=== PATIENT | female | born 1985 | race Two or more races ===

== ENCOUNTER 2022-07-01 14:25 | Inpatient (IN) | payer MEDICAID, OTHER ==
[~2022-07-01] VITALS: Ht 160 cm; Wt 92.6 kg
[2022-07-01 15:51] LABS: Basophils # (auto) 0 10 ^3/uL (0-0.2); Basophils % (auto) 0.1 % (0.0-2.0); Eosinophils # (auto) 0 10 ^3/uL (0-0.8); Hematocrit 47.2 % (36.0-46.0); Hemoglobin 15.7 g/dL (12.2-16.2); Lymphocytes # (auto) 1.5 10 ^3/uL (0.4-5.4); Lymphocytes % (auto) 10.6 % (10.0-50.0); Mean Corpuscular Hemoglobin 28.7 pg (28.0-32.0); Mean Corpuscular Hgb Conc. 33.2 g/dL (32.0-36.0); Mean Corpuscular Volume 86.5 fL (80.0-100.0); Monocytes # (auto) 0.3 10 ^3/uL (0-1.3); Monocytes % (auto) 2.3 % (0.0-12.0); Red Blood Cells 5.46 10^6/uL (4.0-5.20); Red Cell Distribution Width 13.1 % (11.8-14.3); White Blood Cell 13.8 10^3/uL (4.4-10.8)
[2022-07-01 16:08] LABS: Calcium 11.1 mg/dL (8.5-10.1); Potassium 4.2 mmol/L (3.5-5.1)
[2022-07-01 16:13] LABS: Albumin 4.1 g/dL (3.4-5.0); BUN/Creatinine Ratio 14.3; Bilirubin, Total 0.7 mg/dL (0.2-1.0); Total Protein 7.7 g/dL (6.4-8.2)
[2022-07-01 16:16] LABS: Lactic Acid w/Reflex 2.7 mmol/L (0.4-2.0)
[2022-07-01] MEDS ORDERED: SODIUM CHLORIDE 0.9% 1,000 ML IV ONE (17:30)
[2022-07-01] MEDS ORDERED: fentaNYL CITRATE 100 MCG/2 ML VL IV ONE (18:45)
[2022-07-01] MEDS ORDERED: ONDANSETRON HCL 4 MG/2 ML VIAL IV ONE (18:45)
[2022-07-01] MEDS ORDERED: TAMSULOSIN HYDROCHLORIDE 0.4 MG CAP PO ONE (18:45)
[2022-07-01] MEDS ORDERED: cefTRIAXone 1GM/50ML D5W 50 ML IV ONE (19:00)
[2022-07-01 19:36] LABS: Urine Bacteria FEW /hpf (None Seen); Urine Blood 1+ /uL (Negative); Urine Budding Yeast FEW /hpf (None Seen); Urine Mucus FEW (None Seen); Urine Specific Gravity 1.038 (1.001-1.035); Urine WBC 114 /hpf (0 - 5)
[2022-07-01] MEDS ORDERED: HYDROcodone-ACET 5/325MG TAB PO PRN (21:00)
[2022-07-01] MEDS ORDERED: ACETAMINOPHEN 325 MG TAB PO PRN (21:00)
[2022-07-01] MEDS ORDERED: ONDANSETRON HCL 4 MG/2 ML VIAL IV PRN (21:00)
[2022-07-01] MEDS ORDERED: TEMAZEPAM 15 MG CAP PO PRN (21:00)
[2022-07-01] MEDS ORDERED: DEXTROSE (50%) 50ML SYRG IV PRN (23:30)
[2022-07-02] MEDS: MORPHINE SULFATE INJ 2 MG/ml SYRG IV PRN ×3 (01:31→23:36)
[2022-07-02 05:02] LABS: Basophils # (auto) 0 10 ^3/uL (0-0.2); Basophils % (auto) 0.3 % (0.0-2.0); Eosinophils # (auto) 0 10 ^3/uL (0-0.8); Hematocrit 42.9 % (36.0-46.0); Hemoglobin 14.1 g/dL (12.2-16.2); Lymphocytes # (auto) 2.2 10 ^3/uL (0.4-5.4); Lymphocytes % (auto) 16.7 % (10.0-50.0); Mean Corpuscular Hemoglobin 28.5 pg (28.0-32.0); Mean Corpuscular Hgb Conc. 32.8 g/dL (32.0-36.0); Mean Corpuscular Volume 86.9 fL (80.0-100.0); Monocytes # (auto) 1.1 10 ^3/uL (0-1.3); Monocytes % (auto) 8.3 % (0.0-12.0); Neutrophils # (auto) 9.9 10 ^3/uL (1.6-8.6); Neutrophils % (auto) 74.7 % (37.0-80.0); Red Blood Cells 4.94 10^6/uL (4.0-5.20); Red Cell Distribution Width 13.5 % (11.8-14.3); White Blood Cell 13.3 10^3/uL (4.4-10.8)
[2022-07-02 05:14] LABS: Albumin 3.4 g/dL (3.4-5.0); BUN/Creatinine Ratio 21.2; Calcium 10.1 mg/dL (8.5-10.1)
[2022-07-02 05:20] LABS: Bilirubin, Total 0.7 mg/dL (0.2-1.0); Total Protein 6.7 g/dL (6.4-8.2)
[2022-07-02] MEDS: ACCU-CHEK COMFORT CURVE STRIP VI SCH ×4 (06:43→22:18)
[2022-07-02] MEDS: InsuLIN REG 1unit/0.01ml Soln (100units/ml) SC SCH ×4 (07:25→22:18)
[2022-07-02] MEDS: cefTRIAXone 1GM/50ML D5W 50 ML IV SCH (09:29)
[2022-07-02] MEDS: PANTOPRAZOLE 40 MG TAB PO SCH (10:51)
[2022-07-02] MEDS ORDERED: MANNITOL FTV 25% 12.5 GM/50 ML 50 ML IV ONE (11:00)
[2022-07-02 13:56] VITALS: BP 99/56
[2022-07-02 16:00] VITALS: BP 128/80
[2022-07-02 22:00] VITALS: BP 118/66
[2022-07-03 05:00] VITALS: BP 120/73
[2022-07-03] MEDS: ACCU-CHEK COMFORT CURVE STRIP VI SCH ×4 (06:29→21:39)
[2022-07-03] MEDS: InsuLIN REG 1unit/0.01ml Soln (100units/ml) SC SCH ×4 (06:29→21:43)
[2022-07-03] MEDS: MORPHINE SULFATE INJ 2 MG/ml SYRG IV PRN (06:40)
[2022-07-03 09:00] VITALS: BP 117/77
[2022-07-03] MEDS: PANTOPRAZOLE 40 MG TAB PO SCH (09:27)
[2022-07-03] MEDS: cefTRIAXone 1GM/50ML D5W 50 ML IV SCH (09:27)
[2022-07-03 13:02] VITALS: BP_SYST 101; BP_SYST 117; BP_DIAS 59; BP_DIAS 67
[2022-07-03 17:00] VITALS: BP 101/60
[2022-07-03] MEDS ORDERED: POLYETHYLENE GLYCOL 17 GM PWDR PO PRN (18:45)
[2022-07-03] MEDS: DOCUSATE SOD 100 MG CAP PO SCH (21:38)
[2022-07-03 22:00] VITALS: BP 116/77
[2022-07-03] MEDS ORDERED: SENNA 8.6 MG TAB PO SCH (22:00)
[2022-07-03] MEDS ORDERED: INSULIN LANTUS (GLARGINE) 1 /0.01ml (100units/ml) SC SCH (22:00)
[2022-07-04 05:00] VITALS: BP 125/85
[2022-07-04] MEDS: ACCU-CHEK COMFORT CURVE STRIP VI SCH ×3 (06:26→17:00)
[2022-07-04] MEDS: InsuLIN REG 1unit/0.01ml Soln (100units/ml) SC SCH ×3 (06:27→18:16)
[2022-07-04] MEDS ORDERED: GLIMEPIRIDE 2 MG TAB PO SCH (07:00)
[2022-07-04] MEDS: cefTRIAXone 1GM/50ML D5W 50 ML IV SCH ×2 (08:57→10:35)
[2022-07-04 08:58] VITALS: BP 112/73
[2022-07-04] MEDS: PANTOPRAZOLE 40 MG TAB PO SCH (09:00)
[2022-07-04] MEDS: DOCUSATE SOD 100 MG CAP PO SCH (09:00)
[2022-07-04 13:00] VITALS: BP 110/74
[2022-07-04 14:10] LABS: Albumin 3.2 g/dL (3.4-5.0); BUN/Creatinine Ratio 13.2; Potassium 4.1 mmol/L (3.5-5.1)
[2022-07-04 14:12] LABS: Bilirubin, Total 0.4 mg/dL (0.2-1.0); Total Protein 7.6 g/dL (6.4-8.2)
[2022-07-04] MEDS ORDERED: LANC-347 XX (15:24)
[2022-07-04] MEDS ORDERED: INSU-567 XX (15:24)
[2022-07-04] MEDS ORDERED: GLIM-6 PO (15:24)
[2022-07-04] MEDS ORDERED: BLOO1KIT60 XX (15:24)
[2022-07-04] MEDS ORDERED: INSLANTI SC (15:24)
[2022-07-04] MEDS ORDERED: HYDR-4902 PO (15:26)
[2022-07-04] MEDS ORDERED: CEPH-510 PO (15:26)
[2022-07-04 16:55] VITALS: BP 119/80
== END 2022-07-04 18:20 | disposition home or self-care (01) | DRG 463 ==
LOC: ER 14:25 → EDBD 14:25 → OVERFLOW 21:00 → EAST 07-02 13:56
PROVIDERS: ADMIT Nurse Practitioner; ATTEND Internal Medicine
DX: N13.6 Pyonephrosis (principal); K76.0 Fatty (change of) liver, not elsewhere classified; E11.9 Type 2 diabetes mellitus without complications; N13.9 Obstructive and reflux uropathy, unspecified; Z20.822 Contact with and (suspected) exposure to COVID-19; R74.01 Elevation of levels of liver transaminase levels; E66.01 Morbid (severe) obesity due to excess calories; E83.52 Hypercalcemia; Z68.36 Body mass index [BMI] 36.0-36.9, adult
CPT/HCPCS: 36415; 74176; 76705; 80053; 81001; 82962; 83036; 83605; 83690; 84484; 84702; 85025; 87086; 87426; 93005; 96361; 96365; 96366; 96367; 96375; G0378; J0696; J1815; J2405